=== PATIENT | male | born 2000 | race Caucasian/White ===

== ENCOUNTER 2021-02-15 12:27 | Emergency (ER) | payer BC, OTHER ==
[~2021-02-15] VITALS: Ht 190.5 cm; Wt 63.5 kg
[2021-02-15 13:25] LABS: Basophils # (auto) 0.1 10 ^3/uL (0-0.2); Basophils % (auto) 0.9 % (0.0-2.0); Eosinophils # (auto) 0 10 ^3/uL (0-0.8); Eosinophils % (auto) 0.4 % (0.0-7.0); Hematocrit 42.4 % (41.0-53.0); Hemoglobin 14.8 g/dL (13.5-17.5); Lymphocytes # (auto) 2.1 10 ^3/uL (0.4-5.4); Lymphocytes % (auto) 30.4 % (10.0-50.0); Mean Corpuscular Hemoglobin 32.6 pg (28.0-32.0); Mean Corpuscular Volume 93.2 fL (80.0-100.0); Monocytes # (auto) 0.5 10 ^3/uL (0-1.3); Monocytes % (auto) 7.6 % (0.0-12.0); Neutrophils # (auto) 4.2 10 ^3/uL (1.6-8.6); Neutrophils % (auto) 60.7 % (37.0-80.0); Nucleated Red Blood Cells % 0.1 %; Red Blood Cells 4.55 10^6/uL (4.5-5.90); Red Cell Distribution Width 12.1 % (11.8-14.3); White Blood Cell 6.9 10^3/uL (4.4-10.8)
[2021-02-15 13:52] LABS: Albumin 4.4 g/dL (3.4-5.0); Anion Gap 3 (5-15); Blood Alcohol < 3.0 mg/dL (0-5); Blood Urea Nitrogen 16 mg/dL (7-18); Calcium 9.7 mg/dL (8.5-10.1); Carbon Dioxide 30 mmol/L (21-32); Chloride 108 mmol/L (98-107); Glucose 84 mg/dL (74-106); Magnesium 2.4 mg/dL (1.6-2.6); Potassium 3.9 mmol/L (3.5-5.1); Sodium 141 mmol/L (136-145)
[2021-02-15 13:57] LABS: Alanine Aminotransferase 25 U/L (16-61); Alkaline Phosphatase 99 U/L (45-117); Aspartate Aminotransferase 14 U/L (15-37); BUN/Creatinine Ratio 18.8; Bilirubin, Total 0.9 mg/dL (0.2-1.0); GFR African American 149 mL/min; GFR Non-African American 123 mL/min; Total Protein 8.1 g/dL (6.4-8.2)
[2021-02-15 15:36] LABS: Urine Bacteria NONE SEEN /hpf (None Seen); Urine Blood 1+ /uL (Negative); Urine Mucus FEW (None Seen); Urine Specific Gravity 1.029 (1.001-1.035); Urine WBC 1 /hpf (0 - 3)
[2021-02-15 15:48] LABS: Alcohol, Urine < 3.0 mg/dL (0-10); Amphetamine Screen, Urine NEGATIVE (NEGATIVE); Barbiturate Scree,Urine NEGATIVE (NEGATIVE); Benzodiazephine Screen, Urine NEGATIVE (NEGATIVE); Cannabinoid Screen, Urine POSITIVE (NEGATIVE); Cocaine Screen, Urine NEGATIVE (NEGATIVE); Phencyclidine Screen, Urine NEGATIVE (NEGATIVE)
[2021-02-15 15:54] LABS: Opiate Scree,Urine NEGATIVE (NEGATIVE)
[2021-02-15 16:58] VITALS: BP 119/81
== END 2021-02-15 16:59 | disposition home or self-care (01) ==
LOC: ER 12:27
DX: R55 Syncope and collapse (principal); Z20.822 Contact with and (suspected) exposure to COVID-19
CPT/HCPCS: 36415; 70450; 71045; 80053; 80307; 80320; 81001; 83735; 85025; 87426; 93005